=== PATIENT | male | born 1970 | race Caucasian/White ===

== ENCOUNTER 2017-01-30 18:34 | Emergency (ER) | payer OTHER ==
--- NOTE | ~2017-01-30 | CR72 ---
[facility] A Service of [facility] / [facility] RADIOLOGY TEXT RESULTS PATIENT: JORDEN LUTZ LOCATION: [facility] : 72 UNIT #: [id number] AGE: [address]: Juancho White MD SEX: M ORDER DR: [id number] [facility] [address] [facility]. [place], [place] [address] [id number] MR#: [id number] Acc #: [id number] NAME: JORDEN LUTZ. : 1970 SEX: M STUDY DATE/TIME: 01/30/2017 20:09 UNIT: MICHELL ROOM: STUDY DESCRIPTION: CR Chest Single View Portable Attending Physician: Juancho White Ordering Physician: Er [facility]icians Primary Care Physician: Effie Lange M.D. MEDICAL IMAGING REPORT This report is preliminary unless electronic signature is present EXAM Portable chest HISTORY ASCD/pacer placed 3 weeks ago and inserted making alarming sounds one week ago. COMMENT Single frontal portable view of the chest timed 20:09 01/30/2017 compared to 10/09/2016. There is mild cardiac silhouette enlargement improved from prior. Previously noted volume overload is resolved. Lungs are now clear. There is old left-sided pacer/defibrillator with lead expected location right atrium. There is no pneumothorax or pleural effusion suspected. IMPRESSION 1. Expected appearance of the left-sided pacer/defibrillator. 2. Interval resolution of congestive failure noted on the study of 10/09/2016. No pneumothorax. Mild cardiac enlargement. Dictated by... Barbra Sharpe M.D. THIS IS AN ELECTRONICALLY VERIFIED REPORT Barbra Sharpe M.D. at 01/31/2017 3:40 PM PATEL/ny TD: 01/31/2017 08:56 JOB #: [id number] [facility] A Service of [facility] / [facility] RADIOLOGY TEXT RESULTS PATIENT: JORDEN LUTZ LOCATION: [facility] : 71 UNIT #: [id number] AGE: [address]: Juancho White MD SEX: M ORDER DR: MEDICAL IMAGING REPORT Page 1 of 1 COPY
--- NOTE | ~2017-01-30 | EKG ---
PATIENT: JORDEN LUTZ UNIT #: [id number] Ventricular Rate: 81 BPM Atrial Rate: 81 BPM P-R Interval: 180 ms QRS Duration: 98 ms Q-T Interval: 416 ms QTC Calculation(Bezet): 483 ms P [place]: 41 degrees Calculated R [place]: -45 degrees Calculated T [place]: 78 degrees Diagnosis Line: Normal sinus rhythm Diagnosis Line: Left axis deviation Diagnosis Line: Low voltage QRS Diagnosis Line: Septal infarct (cited on or before 05-APR-2016) Diagnosis Line: Abnormal ECG Diagnosis Line: When compared with ECG of 10-OCT-2016 06:54, Diagnosis Line: Questionable change in initial forces of Anterior Diagnosis Line: leads Diagnosis Line: T wave inversion less evident in Lateral leads Diagnosis Line: Confirmed by NORMA CARRENO MD ([id number]) on Diagnosis Line: 01/31/2017 8:37:39 AM INTERPRETING MD: WAI WU
[~2017-01-30 18:34] MED LIST: ACETAMINOPHEN PO; ALDACTONE PO; ATORVASTATIN CA80 MG PO; B COMPLEX1 TAB PO; BAYER CHEWABLE81 MG PO; CLOPIDOGREL75 MG PO; ENTRESTO 24 MG1 EACH PO; FOLIC ACID1 MG PO; K-LOR HOSPITAL20 ME1 PO; KEPPRA750 M1 PO; LASIX PO; LISINOPRIL-HCTZ1 T14 PO; LISINOPRIL5 MG PO; LOPRESSOR PO; LORTAB 10-5001 EACH PO; LOVAZA1 G PO; MEGA MULTIVITA1 EACH PO; POTASSIUM CHLO10 ME1 PO; PRINIVIL40 MG PO; VALACYCLOVIR500 MG PO; ZOVIRAX PO
[2017-01-30 20:22] LABS: BASOPHIL# 0.2 X10e3 (0-0.3); BASOPHIL% 2.4 % (0-2.5); DIFF IND NO; EOSINOPHIL# 0.3 X10e3 (0-0.7); EOSINOPHIL% 3.5 % (0.0-7.0); HEMATOCRIT 39.4 % (38.0-50.0); HEMOGLOBIN 12.8 gm/dL (13.0-16.0); LYMPHOCYTE# 3.2 X10e3 (1.0-3.5); LYMPHOCYTE% 33.6 % (17.0-45.0); MEAN CELL VOLUME 76.4 FL (83-96); MEAN CORPUSCULAR HEMOGLOBIN 24.8 PG (28-34); MEAN CORPUSCULAR HGB CONC 32.4 g/dL (30-36); MEAN PLATELET VOLUME 7.4 FL (6.5-11.5); MONOCYTE# 0.5 X10e3 (0-1.0); MONOCYTE% 5.1 % (3.0-12.0); NEUTROPHIL# 5.3 X10e3 (1.5-7.1); NEUTROPHIL% 55.4 % (40-75); PLATELET COUNT 266 X10e3 (140-420); RED BLOOD COUNT 5.16 X10e (3.90-5.60); RED CELL DISTRIBUTION WIDTH 18.5 % (11.0-15.5); WHITE BLOOD COUNT 9.6 X10e3 (4.0-10.5)
[2017-01-30 20:37] LABS: PARTIAL THROMBOPLASTIN TIME 26.6 SECONDS (23.5-31.3)
[2017-01-30 20:45] LABS: CALCIUM SERUM 9.1 mg/dL (8.4-10.2); CREATININE SERUM 0.9 mg/dL (0.6-1.4); GLOM FILT RATE Estimated 102.8 mL/min (>60); POTASSIUM 3.5 mmol/L (3.5-5.1)
[2017-01-30 20:47] LABS: POC - CKMB 1.7 ng/mL (0.0-7.9); POC - TROPONIN <0.05 ng/mL (<=0.05)
== END 2017-01-30 21:30 | disposition home or self-care (01) ==
LOC: CED 18:34
PROVIDERS: Emergency Medicine
DX: T82.118A Breakdown (mechanical) of other cardiac electronic device, initial encounter (principal); I25.2 Old myocardial infarction; Z90.89 Acquired absence of other organs; Z87.891 Personal history of nicotine dependence
CPT/HCPCS: 36415; 71010; 80048; 82553; 84484; 85025; 85610; 85730; 93005; 99284

== ENCOUNTER 2017-02-12 06:22 | Inpatient (IN) | payer OTHER ==
--- NOTE | ~2017-02-12 | CR63 ---
[facility] A Service of [facility] & [facility] RADIOLOGY TEXT RESULTS PATIENT: JORDEN LUTZ LOCATION: C5B 555-01 : 72 UNIT #: [id number] AGE: [address]: Mat Paez MD SEX: M ORDER DR: [id number] [facility] [address] [facility]. [place], [place] [address] [id number] I MR#: [id number] Acc #: [id number] NAME: JORDEN LUTZ. : 1970 SEX: M STUDY DATE/TIME: 02/13/2017 10:25 UNIT: B ROOM: [facility] STUDY DESCRIPTION: CR Chest 2 View Attending Physician: Mat Paez M.D. Ordering Physician: Marylin Ballesteros M.D. Primary Care Physician: Effie Lange M.D. MEDICAL IMAGING REPORT This report is preliminary unless electronic signature is present EXAM 2 views of the chest COMPARISON January 30, 2017; October 09, 2016 and April 05, 2016. INDICATION 46-year-old male with fever for 1 day. History of hypertension. FINDINGS Multilead left chest pacemaker/defibrillator device appears stable. One of the leads appears to terminate in the SVC, possibly an undesired location. No evidence of lead disruption. Mild cardiomegaly. No pleural effusion, pulmonary edema, acute airspace disease or pneumothorax. Diffuse multilevel anterior osteophyte formation of the upper to mid thoracic spine. IMPRESSION 1. The chest is stable from January 30, 2017. Please note that one of the pacemaker/defibrillator leads terminates in stable position within the SVC. This is an abnormal position. Cardiology consultation is recommended. 2. Mild cardiomegaly without overt pulmonary edema or other acute finding. Dictated by... Christiano Medina M.D. THIS IS AN ELECTRONICALLY VERIFIED REPORT Christiano Medina M.D. at 02/21/2017 11:49 AM HALLE/yo TD: 02/13/2017 11:27 [facility] A Service of [facility] & [facility] RADIOLOGY TEXT RESULTS PATIENT: JORDEN LUTZ LOCATION: C5 555-01 : 72 UNIT #: [id number] AGE: [address]: Mat Paez MD SEX: M ORDER DR: JOB #: [id number] MEDICAL IMAGING REPORT Page 1 of 1 COPY
--- NOTE | ~2017-02-12 | OR ---
Unit #: [id number] #: [id number] Patient: JORDEN LUTZ [id number] [address] [place], [place] [address] [id number] E MR#: [id number] NAME: JORDEN LUTZ ROOM: Date of Procedure: 02/12/2017 Admission Date: 02/12/2017 Surgeon: Mat Paez M.D. : 1970 Attending Physician: Mat Sims M.D. Primary Care Physician: Effie Lange M.D. PROCEDURE OPERATIVE NOTE PREOPERATIVE DIAGNOSIS Right ureteral stone. POSTOPERATIVE DIAGNOSIS Right ureteral stone. PROCEDURES PERFORMED 1. Cystoscopy. 2. Right ureteroscopy. 3. Right laser lithotripsy. 4. Right stone basket extraction. 5. Right retrograde pyelogram. 6. Interpretation of right retrograde pyelogram. 7. Right 6 Vincentian x 28 cm double J stent. ANESTHESIA General. INDICATION FOR PROCEDURE The patient is a pleasant 46-year-old gentleman with a right mid ureteral stone. He has severe cardiac disease. The risks, benefits and alternatives, including bleeding, infection, damage to adjacent structures, need for further surgery, need for nephrostomy tube, PE, CVA, MN and were discussed with the patient. Informed consent was obtained. He wished to proceed. DESCRIPTION OF PROCEDURE The patient was taken to the operating suite and properly identified. After the application of satisfactory general anesthetic, the patient was placed in the dorsal lithotomy position. All pressure points were padded to the satisfaction of the surgical, anesthetic and nursing teams. His genitalia were prepped and draped in the usual sterile fashion. I introduced the rigid 22 Vincentian cystoscope. The entire urethra was normal. The prostate was non-obstructed. The bladder had no tumors, stones or masses. I identified the right ureteral orifice. I passed a 0.035 Sensor wire. The stone was present in the mid ureter. It was a little bit difficult to get the wire by stone, but I was able to manipulate by the stone and into the kidney. I dilated the distal ureter sequentially to 10 Vincentian. I then passed a dual-lumen catheter and passed a second wire. I was unable to pass a flexible ureteroscope over the wire with the second wire, but by removing the second wire I was able to get myself up to the level of the stone, which was now in the proximal ureter. The stone was fairly impacted. I used a 200 micron holmium laser fiber and carefully Unit #: [id number] #: [id number] Patient: JORDEN LUTZ treated the stone. It broke into very small fragments. I replaced the wire. At this point, I was actually able to pass an 11 x 13 Vincentian x 38 cm ureteral access sheath in the mid ureter. I passed a flexible ureteroscope through the sheath. I was able to get up to the stone fragments to remove these by stone basket extraction. I then shot a right retrograde pyelogram. The findings were as follows. Interpretation of right retrograde pyelogram: There was mild hydroureteronephrosis with a significant tortuosity of the proximal ureter. It almost appeared to be consistent with a UPJ obstruction, but when I replaced the wire, the ureter straightened out. I back-loaded the wire over the cystoscope. I passed a 6 Vincentian x 28 cm double-J stent. No string was attached. The stent coiled in the kidney and in the bladder. The bladder was emptied. The scope was removed. A Uro-jet was passed. PLAN The patient will be to leave the stent in place for one week. He will need a cysto and stent removal. He does need to be observed, as he was having intraoperative bradycardia. We will have cardiology see him. He will be in a monitored bed. Dictated by... Bao Garcia/kamla TD: 02/12/2017 14:47 JOB #: [id number] PROCEDURE OPERATIVE NOTE Page 1 of 1 X Mat Paez MD X PROCEDURE OPERATIVE NOTE
--- NOTE | ~2017-02-12 | CT4 ---
[facility] A Service of [facility] & [facility] RADIOLOGY TEXT RESULTS PATIENT: JORDEN LUTZ LOCATION: [facility] 555- : 72 UNIT #: [id number] AGE: [address]: Mat Paez MD SEX: M ORDER DR: [id number] [facility] [address] [facility]. [place], [place] [address] [id number] E MR#: [id number] Acc #: [id number] NAME: JORDEN LUTZ. : 1970 SEX: M STUDY DATE/TIME: 02/12/2017 8:01 UNIT: [facility] ROOM: STUDY DESCRIPTION: CT Abd and Pelv Wo Cont Attending Physician: Mat Sims M.D. Ordering Physician: Mat Sims M.D. Primary Care Physician: Effie Lange M.D. MEDICAL IMAGING REPORT This report is preliminary unless electronic signature is present EXAM CT abdomen and pelvis without IV contrast COMPARISON CT chest dated April 07, 2016. INDICATION 46-year-old male with right flank pain for 1 day. Report of outside CT abdomen and pelvis dated February 10, 2017 described a 4.0 mm obstructing calculus in the proximal right ureter with associated hydronephrosis and hydroureter. TECHNIQUE Axial CT imaging of the abdomen and pelvis was performed. Coronal and sagittal reformats were constructed. This CT exam was performed with one or more of the following radiation dose reduction techniques: automatic exposure control, adjustment of mA and/or kV according to patient size, and iterative reconstruction. FINDINGS Lack of IV contrast limits evaluation of adenopathy, vasculature and viscera. There is a periumbilical hernia containing small bowel loops which abut the wall of the hernia sac, suggestive of adhesive disease. No evidence of associated obstruction. Multilevel degenerative facet disease of the lumbar spine. No acute fractures or suspicious osseous lesions. Severe degenerative disc disease at L5-S1 with endplate sclerosis and moderate posterior disc osteophyte complex. There is associated severe neural foraminal narrowing bilaterally at this level. Multilevel Schmorl's node formation of the thoracic spine. Cardiac lead terminates in the right ventricle. There is minimal calcification at the level of the mitral valve. Coronary artery calcifications are also suspected. There is also minimal calcification involving the aortic valve. [facility] A Service of [facility] RADIOLOGY TEXT RESULTS PATIENT: JORDEN LUTZ LOCATION: C5[facility] 555-01 : 72 UNIT #: [id number] AGE: [address]: Mat Paez MD SEX: M ORDER DR: The unenhanced liver, gallbladder, pancreas and adrenal glands are unremarkable. There is a single calcified splenic granuloma. Nonobstructive calculus in the left kidney. There is right hydronephrosis and right hydroureter due to obstructive calculus measuring up to 4.0 mm at the junction of the middle and distal thirds of the right ureter. There is mild perinephric stranding and proximal periureteral stranding on the right. No other ureteral calculi. Urinary bladder is decompressed. Minimal prostatic calcifications, perhaps reflecting remote prostatitis. There has been prior resection of the sigmoid colon. The appendix is not seen and may be surgically absent. No free fluid or pneumoperitoneum. Abdominal aorta is normal in caliber. No adenopathy. IMPRESSION 1. Obstructive 4.0 mm calculus in the right ureter at the junction of middle and distal thirds. There is associated upstream hydroureter and moderate right hydronephrosis. 2. Nonobstructive calculus in the left kidney. 3. Severe degenerative disc and endplate change at L5-S1 with severe neural foraminal narrowing bilaterally. 4. Calcifications at the aortic and mitral valves. Correlation for clinical signs of significant valvular pathology recommended. 5. Prior surgical resection of the left colon. Appendix is not seen, possibly surgically absent. No secondary findings of acute appendicitis. Dictated by... Christiano Medina M.D. THIS IS AN ELECTRONICALLY VERIFIED REPORT Christiano Medina M.D. at 02/20/2017 1:13 PM Torsten TD: 02/12/2017 11:28 JOB #: [id number] MEDICAL IMAGING REPORT Page 1 of 1 COPY
--- NOTE | ~2017-02-12 | EKG ---
PATIENT: JORDEN ULTZ UNIT #: [id number] Ventricular Rate: 82 BPM Atrial Rate: 82 BPM P-R Interval: 162 ms QRS Duration: 98 ms Q-T Interval: 428 ms QTC Calculation(Bezet): 500 ms P [place]: 34 degrees Calculated R [place]: -54 degrees Calculated T [place]: 68 degrees Diagnosis Line: Normal sinus rhythm Diagnosis Line: Left axis deviation Diagnosis Line: Low voltage QRS Diagnosis Line: Inferior infarct , age undetermined Diagnosis Line: Anterolateral infarct , age undetermined Diagnosis Line: Abnormal ECG Diagnosis Line: Diagnosis Line: Confirmed by DARIUSZ AKERS MD ([id number]) on Diagnosis Line: 02/15/2017 5:16:58 PM INTERPRETING MD: BHARATH
--- NOTE | ~2017-02-12 | EKG ---
PATIENT: JORDEN LUTZ UNIT #: [id number] Ventricular Rate: 80 BPM Atrial Rate: 80 BPM P-R Interval: 130 ms QRS Duration: 76 ms Q-T Interval: 386 ms QTC Calculation(Bezet): 445 ms P [place]: 50 degrees Calculated R [place]: -46 degrees Calculated T [place]: 91 degrees Diagnosis Line: Sinus rhythm with Premature atrial complexes with Diagnosis Line: Aberrant conduction Diagnosis Line: Left axis deviation Diagnosis Line: Low voltage QRS Diagnosis Line: Septal infarct (cited on or before 05-APR-2016) Diagnosis Line: Abnormal ECG Diagnosis Line: When compared with ECG of 30-JAN-2017 19:18, Diagnosis Line: Aberrant conduction is now Present Diagnosis Line: QRS duration has decreased Diagnosis Line: Questionable change in initial forces of Septal Diagnosis Line: leads Diagnosis Line: T wave inversion more evident in Anterolateral Diagnosis Line: leads Diagnosis Line: Confirmed by NORMA CARRENO MD ([id number]) on Diagnosis Line: 02/14/2017 9:37:25 PM INTERPRETING MD: WAI WU
--- NOTE | ~2017-02-12 | CO ---
Unit #: [id number] #: [id number] Patient: JORDEN LUTZ [id number] [address] [place], [place] [address] [id number] I MR#: [id number] NAME: JORDEN LUTZ ROOM: [facility] Age: 46 Sex: M Admission Date: 02/12/2017 : 1970 Attending Physician: Mat Paez M.D. Primary Care Physician: Effie Lange M.D. Consultation Date: 02/13/2017 CONSULTATION REPORT REASON FOR CONSULTATION Cardiovascular management and bradycardia. HISTORY OF PRESENT ILLNESS This is a 46-year-old white male, known to Dr. Marin with a past medical history of coronary artery disease with myocardial infarction, status post cardiac catheterization in 03/2016, which revealed significant disease in the ramus and LAD. The patient underwent stent placement in the ramus and LAD. His ejection fraction was low at 20% to 25% and he was noted to have akinesis of the anteroseptal and apical wall. He was sent on LifeVest and ultimately received an AICD on 01/06/[address] Khan at [facility]. Additional past medical history includes hypertension, hyperlipidemia, and partial colectomy secondary to acute diverticulitis. The patient is a reformed smoker. Family history is significant for coronary artery disease. The patient presented to the hospital yesterday with complaints of right flank pain for the last several days. He had some associated nausea, vomiting, and chills, but no fever. He denies chest pain, but has had some shortness of breath and fatigue with exertion intermittently. He denies palpitations. There are no reports of PND, orthopnea, or lower extremity edema. He denies dizziness, syncope, or AICD shock. In the emergency department, his pulse was 100 with respirations of 22, and blood pressure of 140/85. CT of the abdomen and pelvis revealed an obstructive calculus 4 mm in the right ureter. There was hydronephrosis on the right side as well as severe degenerative disk disease. He was given a dose of Toradol and Zofran. He was started on normal saline. He was admitted and Urology was consulted. On 02/12/2017, he underwent placement of right ureteral stent. He is feeling better, but does have some dark blood in his urine without clots. During the ureteral stent, he reportedly had bradycardia with rates in the 30s. This cannot be confirmed as there was no telemetry on the chart with bradycardia noted. Telemetry overnight and today reveals sinus rhythm with rates in the 70s to 80s. Cardiology was consulted for further management. The patient's device will be interrogated. He does complain that his AICD incision has not healed well since 12/2016. He has had some intermittent drainage, but no fever, chills, or erythema. On exam, there is a small area of drainage, which appears serosanguineous. Cultures and chest x-ray will be obtained. PAST MEDICAL HISTORY 1. Coronary artery disease, myocardial infarction, status post cardiac Unit #: [id number] #: [id number] Patient: JORDEN LUTZ catheterization on 04/06/[address] Julian, which revealed left main normal. LAD 90% in ostium followed by ectatic segment. 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 Left circumflex normal. Right coronary artery 70% in mid segment. Long 95% stenosis at the junction of proximal two-thirds and distal one-third. PDA occluded. Posterior left ventricular branch is normal and bypassable. Mid right coronary artery stenosis was amenable to PCI with stent insertion. Ramus 99% near its origin with 100% stenosis of the small anterior division of the ramus intermedius. Severely compromised ejection fraction of 30% or less. Status post angioplasty and Synergy drug-eluting stent in the LAD and ramus. Right coronary artery not dilated. 2. 2D echocardiogram on 04/06/2016 revealed mild LVH. Ejection fraction 20% to 25%. Severe hypokinesis of the apical septum, anterior wall, apex, and lateral wall of the left ventricle. Moderate aortic regurgitation. No pericardial effusion. Repeat 2D echocardiogram on 10/10/2016 revealed an ejection fraction of 25% to 30%. Mild aortic regurgitation. 3. Ischemic cardiomyopathy with history of AICD on 01/06/2017. The patient states that one lead was turned off secondary to malfunction. Records are pending. 4. Hypertension. 5. Hyperlipidemia. 6. Partial colectomy secondary to acute diverticulitis. 7. Reformed tobacco abuse. PAST SURGICAL HISTORY 1. Cardiac catheterization, PCI, and stent as noted above. 2. AICD on 01/06/2017. 3. Partial colectomy due to acute diverticulitis. 4. Appendectomy. 5. Right hand surgery. 6. Cholecystectomy. 7. Left knee surgery. 8. Vasectomy. HOME MEDICATIONS The patient states that a couple of his home medications, he has not been taking including his Entresto. We will need to call the patient's pharmacy to the clarify refill olive picker. Medications were to include Zovirax 800 mg p.o. daily, 75 mg p.o. daily, Entresto 24/26 mg 0.5 tablets p.o. b.i.d., metoprolol tartrate 25 mg p.o. daily, atorvastatin 80 mg p.o. at bedtime, aspirin 81 mg p.o. daily, Plavix 75 mg p.o. daily, Lasix 40 mg p.o. daily, potassium chloride 10 mEq p.o. daily, acetaminophen 650 mg p.o. every 6 hours, Lovaza 1 g p.o. b.i.d., spironolactone 12.5 mg p.o. daily. ALLERGIES Codeine, severe throat swelling. SOCIAL HISTORY The patient lives in a private residence. He is a reformed smoker. The patient quit smoking 10 years ago. He previously smoked one pack of cigarettes per day for 20 years. There are no reports of alcohol or illicit drug use. FAMILY HISTORY Significant for heart disease in his sister. Unit #: [id number] #: [id number] Patient: JORDEN LUTZ REVIEW OF SYSTEMS Ten-point review of systems is negative except for details noted above in HPI. PHYSICAL EXAMINATION VITAL SIGNS: Temperature 98.1, pulse 74, blood pressure 108/60. CONSTITUTIONAL: This is a 46-year-old white male, in no acute distress. SKIN: Warm and dry. NECK: Supple. No jugular vein distention. No hepatojugular reflux. Normal carotid upstrokes. No carotid bruits auscultated. HEART: S1 and S2. Regular rate and rhythm. No murmurs, rubs, or gallops. LUNGS: Bilateral breath sounds have good air entry throughout all lung moeller. Respirations are even and nonlabored. No rales, rhonchi, or wheezes. ABDOMEN: Soft, nontender, and nondistended. Positive bowel sounds auscultated x4 quadrants. No ascites noted. EXTREMITIES: Bilateral lower extremities have no pretibial pitting edema. DP and PT pulses are 2+. Capillary refill is less than 2 seconds. DIAGNOSTIC STUDIES LABORATORY RESULTS: White blood cell count 10.2, hemoglobin 11.6, hematocrit 36.8, platelets 259. Sodium 139, potassium 3.7, chloride 103, CO2 of 29, BUN 20, creatinine 1.4, glucose 109, magnesium 2.1. AST 29, ALT 24, alkaline phosphatase 106. Lipase 145. UA with trace protein and 3+ blood. IMAGING STUDIES: CT of the abdomen and pelvis reveals obstructive calculus in the right ureter measuring 4 mm. Hydroureter. Moderate right hydronephrosis. Nonobstructing renal calculus in the left kidney. Severe degenerative disk disease. Calcification of aortic and mitral valves. Chest x-ray, pending. CARDIOVASCULAR STUDIES: EKG reveals sinus rhythm with a ventricular rate of 82 beats per minute. Left axis deviation. Abnormal T waves in the anterolateral leads. Low-voltage QRS. Poor R-wave progression. QTc 500 msec. IMPRESSION 1. Right obstructing ureter stone with right hydronephrosis, status post right ureteral stent on 02/12/2017. 2. Coronary artery disease with history of myocardial infarction, status post percutaneous coronary intervention and drug-eluting stent in the ramus and left anterior descending in 03/2016. 3. Ischemic cardiomyopathy with history of recent automatic implantable cardioverter-defibrillator on 01/06/2017. 4. Left subclavian site drainage, rule out infection. 5. Chronic systolic congestive heart failure compensated. 6. Hypertension. 7. Hyperlipidemia. 8. Left ventricular ejection fraction 25%. 9. Reformed tobacco abuse. PLAN 1. The patient presented to the hospital with complaints of flank pain. He was admitted for an obstructing right ureteral stone and Urology was consulted. Unit #: [id number] #: [id number] Patient: JORDEN LUTZ 2. Cardiology was consulted due to bradycardia. There is no evidence of bradycardia on telemetry or exam. 3. The patient's AICD will be interrogated. 4. There is mild amount of serosanguineous drainage from his left subclavian AICD site. We will send the drainage for Gram stain and culture. 5. PA and lateral chest x-ray has been ordered to look a lead placement. 6. There is no evidence of congestive heart failure on exam or reports of chest pain. 7. The patient will be continued on dual anti-platelet therapy, beta arthur, and statin. He was on Entresto but was not taking it prior to admission. Entresto has been restarted to decrease morbidity, mortality, and rehospitalization. In addition, the patient is on scheduled spironolactone and Lasix. Dictated by... OMAIRA Garcia/sam TD: 02/13/2017 23:09 JOB #: [id number] CONSULTATION REPORT Page 1 of 1 X X CONSULTATION REPORT
--- NOTE | ~2017-02-12 | HP ---
Unit #: [id number] #: [id number] Patient: JORDEN LUTZ [id number] [address] [address] [id number] E MR#: [id number] NAME: JORDEN LUTZ ROOM: Age: 46 Sex: M Admission Date: 02/12/2017 : 1970 Attending Physician: Mat Sims M.D. Primary Care Physician: Effie Lange M.D. HISTORY AND PHYSICAL CHIEF COMPLAINT Right flank pain. HISTORY OF PRESENT ILLNESS The patient is a 46-year-old male who has about a five day history of right flank pain. The pain is severe and has caused him to return to the emergency room on two occasions. He has had nausea and a small amount of vomiting. He has had no documented fevers. He had a CT of the abdomen and pelvis which shows a 4 mm mid ureteral right-sided stone. He has a previous history of nephrolithiasis, says he has passed his prior stones spontaneously. His pain has been relieved by pain medication. PAST MEDICAL HISTORY Coronary artery disease, hyperlipidemia, nephrolithiasis. PAST SURGICAL HISTORY Colectomy. Cardiac stent, knee surgery, appendectomy. MEDICATIONS Documented in the list and do include aspirin and Plavix. ALLERGIES Codeine. SOCIAL HISTORY He is a prior smoker. REVIEW OF SYSTEMS Positive for right flank pain. Positive for nausea. Positive for vomiting. PHYSICAL EXAMINATION VITAL SIGNS: Afebrile, heart rate of 80. HEENT: Normocephalic and atraumatic. NECK: Supple. No lymphadenopathy. CHEST: Patient is breathing comfortably with a symmetric chest rise. ABDOMEN: Soft, nontender, and nondistended. EXTREMITIES: Moving all extremities well. No clubbing, cyanosis or edema. NEUROLOGIC: Alert and oriented x4. DIAGNOSTIC STUDIES IMAGING STUDIES: CT scan of the abdomen and pelvis was reviewed. Personally he has a right 4 to 5 mm mid ureteral stone with Unit #: [id number] #: [id number] Patient: JORDEN LUTZ hydronephrosis. There is a small left nonobstructing stone. Labs are significant for creatinine of 1.1, white blood cell count of 10,000. Urinalysis is positive for blood but negative for infection. ASSESSMENT AND PLAN Right ureteral stone. We will plan a cystoscopy. Possible right ureteroscopy, laser lithotripsy and stent placement. He understands there maybe a need for additional procedure. The risks, benefits, and alternatives have been discussed with patient. Informed consent was obtained and we will proceed. Dictated by Mat Paez M.D. ARTHUR/lion TD: 02/12/2017 12:25 JOB #: [id number] HISTORY AND PHYSICAL Page 1 of 1 X Mat Paez MD X HISTORY AND PHYSICAL
--- NOTE | ~2017-02-12 | DS ---
Unit #: [id number] #: [id number] Patient: JORDEN LUTZ [id number] [address] [address] [id number] MR#: [id number] NAME: JORDEN LUTZ ROOM: 555 Age: 46 Sex: M Admission Date: 02/12/2017 : 1970 Discharge Date: 02/14/2017 Attending Physician: Mat Paez M.D. Primary Care Physician: Effie Lange M.D. DISCHARGE SUMMARY ADMITTING DIAGNOSIS Right ureteral stone. DISCHARGE DIAGNOSES 1. Right ureteral stone. 2. Bradycardia. HOSPITAL COURSE The patient is a pleasant gentleman with a right 4 mm ureteral stone. He was admitted for management. The patient was admitted and underwent cystoscopy and right ureteroscopy. He tolerated this well, but he had bradycardia without his pacemaker firing intraoperatively. He was admitted for interrogation of his pacemaker and cardiology evaluation. He was evaluated by Dr. Ballesteros. The atrial implantable cardioverter defibrillator plant specialist did not send a dental detail representative despite being called on Tuesday. We are still waiting for that at this point and that is what is delaying his discharge. DISCHARGE MEDICATIONS 1. He will resume his admitting medications. 2. Keflex. 3. Percocet. 4. Peridium. FOLLOWUP He will follow up with me in three to four days for cystoscopy and stent removal. Dictated by... Mat Paez M.D. ARTHUR/gz TD: 02/14/2017 07:17 JOB #: [id number] Unit #: [id number] #: [id number] Patient: JORDEN LUTZ DISCHARGE SUMMARY Page 1 of 1 X Mat Paez MD X DISCHARGE SUMMARY
[2017-02-12 07:38] LABS: URINE SOURCE CLEAN CATCH
[2017-02-12 08:01] LABS: BASOPHIL# 0.1 X10e3 (0-0.3); BASOPHIL% 0.6 % (0-2.5); EOSINOPHIL# 0.4 X10e3 (0-0.7); EOSINOPHIL% 3.8 % (0.0-7.0); HEMATOCRIT 41.3 % (38.0-50.0); HEMOGLOBIN 13.4 gm/dL (13.0-16.0); LYMPHOCYTE# 2.8 X10e3 (1.0-3.5); LYMPHOCYTE% 26.5 % (17.0-45.0); MEAN CELL VOLUME 76.7 FL (83-96); MEAN CORPUSCULAR HGB CONC 32.5 g/dL (30-36); MEAN PLATELET VOLUME 7.5 FL (6.5-11.5); MONOCYTE# 0.7 X10e3 (0-1.0); MONOCYTE% 6.6 % (3.0-12.0); NEUTROPHIL# 6.6 X10e3 (1.5-7.1); NEUTROPHIL% 62.5 % (40-75); PLATELET COUNT 278 X10e3 (140-420); RED BLOOD COUNT 5.38 X10e (3.90-5.60); RED CELL DISTRIBUTION WIDTH 18.1 % (11.0-15.5); WHITE BLOOD COUNT 10.5 X10e3 (4.0-10.5)
[2017-02-12 08:02] LABS: URINE APPEARANCE CLEAR; URINE BILIRUBIN NEG (NEG); URINE BLOOD 3+ (NEG); URINE COLOR YELLOW; URINE GLUCOSE NEG (NEG); URINE KETONE NEG (NEG); URINE LEUKOCYTE ESTERASE NEG (NEG); URINE NITRATE NEG (NEG); URINE PH 5.5 (5-8); URINE PROTEIN TRACE (NEG); URINE SPECIFIC GRAVITY 1.023 (1.003-1.035)
[2017-02-12 08:05] LABS: URBCS1 AUWI 25-50 /[HPF] (0-2); URINE BACTERIA AUWI NEG (NEGATIVE); URINE SQUAMOUS EPITHELIAL CELL NONE SEEN /[HPF]; UWBCS1 AUWI 0-2 (0-5)
[2017-02-12 08:06] LABS: DIFF IND NO
[2017-02-12 08:11] LABS: CULTURE INDICATED? NO
[2017-02-12 08:27] LABS: ALBUMIN SERUM 4.5 g/dL (3.5-5.0); ALKALINE PHOSPHATASE 106 U/L (32-92); ALT (SGPT) 24 U/L (10-40); AST (SGOT) 29 U/L (10-42); BILIRUBIN,TOTAL 0.7 mg/dL (0.2-2.0); BLOOD UREA NITROGEN 17 mg/dL (9-23); BUN/CREATININE RATIO 15.45; CALCIUM SERUM 9.6 mg/dL (8.4-10.2); CARBON DIOXIDE 23 mmol/L (22-31); CHLORIDE 104 mmol/L (100-111); CREATININE SERUM 1.1 mg/dL (0.6-1.4); GLOM FILT RATE Estimated 80.7 mL/min (>60); GLUCOSE FASTING 121 mg/dL (70-110); LIPASE 145 U/L (22-51); POTASSIUM 3.9 mmol/L (3.5-5.1); PROTEIN TOTAL SERUM 7.9 g/dL (6.0-8.3); SODIUM 138 mmol/L (135-145)
[2017-02-12 08:28] LABS: BILIRUBIN, DIRECT <0.1 mg/dL (0.0-0.2); BILIRUBIN,INDIRECT 0.6 mg/dL (0.0-0.9)
[2017-02-13 02:50] LABS: BASOPHIL# 0.1 X10e3 (0-0.3); BASOPHIL% 1.1 % (0-2.5); EOSINOPHIL# 0.4 X10e3 (0-0.7); EOSINOPHIL% 3.8 % (0.0-7.0); HEMATOCRIT 36.8 % (38.0-50.0); HEMOGLOBIN 11.6 gm/dL (13.0-16.0); LYMPHOCYTE% 29.4 % (17.0-45.0); MEAN CORPUSCULAR HEMOGLOBIN 24.6 PG (28-34); MEAN CORPUSCULAR HGB CONC 31.6 g/dL (30-36); MEAN PLATELET VOLUME 7.3 FL (6.5-11.5); MONOCYTE# 0.6 X10e3 (0-1.0); MONOCYTE% 6.1 % (3.0-12.0); NEUTROPHIL# 6.1 X10e3 (1.5-7.1); NEUTROPHIL% 59.6 % (40-75); PLATELET COUNT 259 X10e3 (140-420); RED BLOOD COUNT 4.72 X10e (3.90-5.60); RED CELL DISTRIBUTION WIDTH 17.7 % (11.0-15.5); WHITE BLOOD COUNT 10.2 X10e3 (4.0-10.5)
[2017-02-13 02:52] LABS: DIFF IND NO
[2017-02-13 03:25] LABS: BUN/CREATININE RATIO 14.28; CALCIUM SERUM 8.8 mg/dL (8.4-10.2); CREATININE SERUM 1.4 mg/dL (0.6-1.4); GLOM FILT RATE Estimated 60.3 mL/min (>60); MAGNESIUM 2.1 mg/dL (1.6-3.0); POTASSIUM 3.7 mmol/L (3.5-5.1)
[2017-02-14] MEDS ORDERED: PERCOCET 7.5-31 EACH PO (08:13)
[2017-02-14] MEDS ORDERED: KEFLEX500 MG PO (08:13)
[2017-02-14] MEDS ORDERED: PYRIDIUM PO (08:14)
== END 2017-02-14 09:46 | disposition home or self-care (01) | DRG 669 ==
LOC: CED 06:22 → CEDOF 17:04 → C5B 17:04
PROVIDERS: Emergency Medicine; Physician Assistant Medical; Urology
PROC: BT1DYZZ Fluoroscopy of Right Kidney, Ureter and Bladder using Other Contrast (ICD-10-PCS; 2017-02-12)
PROC: 0TC68ZZ Extirpation of Matter from Right Ureter, Via Natural or Artificial Opening Endoscopic (ICD-10-PCS; principal; 2017-02-12 10:45)
PROC: 0T768DZ Dilation of Right Ureter with Intraluminal Device, Via Natural or Artificial Opening Endoscopic (ICD-10-PCS; 2017-02-12 10:45)
DX: N13.2 Hydronephrosis with renal and ureteral calculous obstruction (principal); E78.5 Hyperlipidemia, unspecified; I25.10 Atherosclerotic heart disease of native coronary artery without angina pectoris; Z87.891 Personal history of nicotine dependence
CPT/HCPCS: 36415; 71020; 74176; 80048; 80076; 81003; 82365; 83690; 83735; 85025; 87070; 87077; 87186; 87205; 88300; 93005; 96361; 96374; 96375; 99285; C1758; C2617; J0690; J1170; J1650; J1885; J2250; J2270; J2405; J3010; J3490

== ENCOUNTER 2017-04-27 13:19 | Emergency (ER) | payer OTHER ==
[~2017-04-27] VITALS: Ht 177.8 cm; Wt 125.6 kg
--- NOTE | ~2017-04-27 | CT4 ---
[facility] A Service of [facility] & [facility] RADIOLOGY TEXT RESULTS PATIENT: JORDEN LUTZ LOCATION: CFTX : 72 UNIT #: [id number] AGE: [address]: Fannie Lehman APRN SEX: M ORDER DR: [id number] [facility] [address] [place], [place] [address] [id number] E MR#: [id number] Acc #: [id number] NAME: JORDEN LUTZ. : 1970 SEX: M STUDY DATE/TIME: 04/27/2017 14:40 UNIT: CFTX ROOM: STUDY DESCRIPTION: CT Abd and Pelv Wo Cont Attending Physician: Fannie Lehman A.P.R.N. Referring Physician: Chong Rowe M.D. Ordering Physician: Vinh Coronel M.D. Primary Care Physician: Effie Lange M.D. MEDICAL IMAGING REPORT This report is preliminary unless electronic signature is present EXAM Abdomen and pelvis CT, no contrast. CLINICAL HISTORY Pain intermittently for a week. Hypertension. Status post appendectomy and prior colectomy. TECHNIQUE Noncontrast CT of the abdomen and pelvis was performed. This CT exam was performed with one or more of the following radiation dose reduction techniques: automatic exposure control, adjustment of mA and/or kV according to patient size, and iterative reconstruction. COMPARISON 02/12/[address] ABDOMEN: Exam markedly degraded by noncontrast technique. The lung bases clear. No effusion. There is a metallic lead terminating in the right atrium. Aorta unremarkable. Spleen borderline in size. Adrenal glands and pancreas and gallbladder unremarkable. Liver demonstrates probable fatty infiltration. There is a 2 mm stone in the proximal left ureter. No upstream hydroureter or significant hydronephrosis. CT PELVIS: Bladder and prostate within normal limits. There are inguinal hernias containing fat only bilaterally. No drainable fluid collection in the pelvis. There is evidence of prior left colonic resection and reanastomosis. Appendix surgically absent. There is an anterior abdominal wall hernia containing loops of small bowel and fat and vessels. Entrance to the hernia sac measures up to 8.8 cm transverse. There is a smaller hernia more superiorly also containing small bowel loops and fat STS. [facility] A Service of [facility] & [facility] RADIOLOGY TEXT RESULTS PATIENT: JORDEN LUTZ LOCATION: CFTX : 72 UNIT #: [id number] AGE: [address]: Fannie Lehman APRN SEX: M ORDER DR: with the entrance to the hernia sac about 7 cm transverse. No complicating features at this time. Inguinal canals otherwise unremarkable. No suspicious bone lesion. Degenerative changes in the thoracolumbar spine. IMPRESSION 1. 2-3 mm stone in the proximal left ureter. No significant hydroureter or hydronephrosis. 2. Examination otherwise appears negative. Appendix surgically absent. Evidence of prior colonic surgery. 3. There are 2 anterior abdominal wall hernias containing fat and small bowel without complicating features as described. Dictated by... Meng Chapman M.D. THIS IS AN ELECTRONICALLY VERIFIED REPORT Meng Chapman M.D. at 04/27/2017 11:07 PM Mesha TD: 04/27/2017 22:13 JOB #: [id number] MEDICAL IMAGING REPORT Page 1 of 1 COPY
--- NOTE | ~2017-04-27 | CR126 ---
[facility] A Service of [facility] & [facility] RADIOLOGY TEXT RESULTS PATIENT: JORDEN LUTZ LOCATION: CFTX : 72 UNIT #: [id number] AGE: [address]: Fannie Lehman APRN SEX: M ORDER DR: [id number] [facility] [address] [place], [place] [address] [id number] E MR#: [id number] Acc #: [id number] NAME: JORDEN LUTZ : 1970 SEX: M STUDY DATE/TIME: 04/27/2017 14:22 UNIT: [facility] ROOM: STUDY DESCRIPTION: CR Foot Complete Min 3 View Lt Attending Physician: Fannie Lehman A.P.R.N. Ordering Physician: Ed Leonardo Coronel M.D. Primary Care Physician: Effie Lange M.D. MEDICAL IMAGING REPORT This report is preliminary unless electronic signature is present EXAM Left foot 04/27/2017 INDICATIONS 46-year-old male with a history of trauma 2 days ago, injured with a skill saw 2 days ago. Foot pain. TECHNIQUE Three views left foot. No comparisons. FINDINGS No acute fracture. No retained opaque foreign body. Joint spaces preserved. Small calcaneal spur. Minimal degenerative change of the first MTP joint. IMPRESSION 1. No acute fracture. Calcaneal spur. Dictated by... Meng Chapman M.D. THIS IS AN ELECTRONICALLY VERIFIED REPORT Meng Chapman M.D. at 04/27/2017 11:07 PM ILYA/xavier TD: 04/27/2017 21:51 JOB #: [id number] MEDICAL IMAGING REPORT Page 1 of 1 COPY
[~2017-04-27 13:19] MED LIST changes: +KEFLEX500 MG PO; +PERCOCET 7.5-31 EACH PO; +PYRIDIUM PO
[2017-04-27 14:04] LABS: URINE SOURCE CLEAN CATCH
[2017-04-27 14:08] LABS: URINE APPEARANCE CLEAR; URINE BILIRUBIN NEG (NEG); URINE BLOOD NEG (NEG); URINE COLOR YELLOW; URINE GLUCOSE NEG (NEG); URINE KETONE NEG (NEG); URINE LEUKOCYTE ESTERASE NEG (NEG); URINE NITRATE NEG (NEG); URINE PROTEIN NEG (NEG); URINE SPECIFIC GRAVITY 1.012 (1.003-1.035); URINE UROBILINOGEN 0.2 MG/DL (NEG)
[2017-04-27 14:09] LABS: BASOPHIL# 0.1 X10e3 (0-0.3); BASOPHIL% 0.5 % (0-2.5); EOSINOPHIL# 0.4 X10e3 (0-0.7); EOSINOPHIL% 4.2 % (0.0-7.0); HEMATOCRIT 42.5 % (38.0-50.0); HEMOGLOBIN 14.4 gm/dL (13.0-16.0); LYMPHOCYTE% 28.9 % (17.0-45.0); MEAN CELL VOLUME 78.7 FL (83-96); MEAN CORPUSCULAR HEMOGLOBIN 26.6 PG (28-34); MEAN CORPUSCULAR HGB CONC 33.8 g/dL (30-36); MONOCYTE# 0.6 X10e3 (0-1.0); MONOCYTE% 5.5 % (3.0-12.0); NEUTROPHIL# 6.3 X10e3 (1.5-7.1); NEUTROPHIL% 60.9 % (40-75); PLATELET COUNT 267 X10e3 (140-420); RED BLOOD COUNT 5.39 X10e (3.90-5.60); RED CELL DISTRIBUTION WIDTH 15.6 % (11.0-15.5); WHITE BLOOD COUNT 10.3 X10e3 (4.0-10.5)
[2017-04-27 14:13] LABS: DIFF IND NO
[2017-04-27 14:15] LABS: CULTURE INDICATED? NO
[2017-04-27 14:44] LABS: ALBUMIN SERUM 4.6 g/dL (3.5-5.0); BILIRUBIN,TOTAL 0.7 mg/dL (0.2-2.0); CALCIUM SERUM 9.6 mg/dL (8.4-10.2); GLOM FILT RATE Estimated 90.5 mL/min (>60); POTASSIUM 3.7 mmol/L (3.5-5.1); PROTEIN TOTAL SERUM 8.3 g/dL (6.0-8.3)
== END 2017-04-27 15:34 | disposition home or self-care (01) ==
LOC: CFTX 13:19 → CED 13:19 → CFTX 13:39
PROVIDERS: Nurse Practitioner
DX: S90.32XA Contusion of left foot, initial encounter (principal); N20.1 Calculus of ureter; I10 Essential (primary) hypertension; I25.2 Old myocardial infarction; Z87.891 Personal history of nicotine dependence; Z88.5 Allergy status to narcotic agent; Z79.899 Other long term (current) drug therapy; W22.8XXA Striking against or struck by other objects, initial encounter; Y92.009 Unspecified place in unspecified non-institutional (private) residence as the place of occurrence of the external cause
CPT/HCPCS: 29540; 36415; 73630; 74176; 80053; 81003; 85025; 99284